=== PATIENT | female | born 1990 | race African-American/Black ===

== ENCOUNTER 2018-06-19 21:51 | Emergency (ER) | payer OTHER ==
[~2018-06-19] VITALS: Ht 167.6 cm; Wt 77.1 kg
--- NOTE | ~2018-06-19 | EKG ---
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
[~2018-06-19 21:51] MED LIST: APAP500 PO; CIPROFLOXIN HC2.5 M1 OPHTHALMIC; COLACE100 MG PO; DOXYCYCLINE 10100 M1 PO; HYDROCORTISONE 1%; IBUPROFEN 600600 M1 PO; IRON325 PO; LANSINOH 60 GM60 GM TOP; MACROBID 100 M100 M1 PO; MICROGESTIN1 EAC1 PO; NAPROSYN500 MG PO; NOHOMEMEDICATIONS; NORCO 5-325 TA1 EACH PO; PRENATAL COMPL1 EACH PO; PRENATAL OR; PRENATAL PO; PRENATAL TABLE1 EAC3 PO; PROGESTERONE100 MG PO; TRAMADOL 50 MG50 MG PO; TUCKS MEDICATE1 EAC1 TOP; TYLENOL325 MG PO; VISTARIL 25 MG25 M1 PO; XANAX 0.25 MG0.25 MG PO; ZOFRAN ODT4 MG PO; ZOFRAN4 MG PO; ZPAK PO; [UNRECOGNIZED DRUG - OTHER]
[2018-06-19 22:29] LABS: ABSOLUTE NEUTROPHILS 5.3 thou/uL (1.4-8.2); BASOPHILS 0.8 % (0.0-2.0); EOSINOPHILS 2.3 % (0.0-3.0); HEMATOCRIT 37.1 % (37.0-47.0); HEMOGLOBIN 12.4 gm/dL (12.0-15.0); LYMPHOCYTES 33.2 % (24.0-44.0); MCH 29.6 pg (26.0-34.0); MCHC 33.5 g/dL (28.0-37.0); MCV 88.2 fL (80.0-100.0); MONOCYTES 8.3 % (1.0-8.0); PLATELET COUNT 280 thou/uL (150-400); POLYS 55.4 % (36.0-66.0); WBC 9.5 thou/uL (4.0-11.0)
[2018-06-19 22:41] LABS: ANION GAP 9 mmol/L (7-16); BUN 17 mg/dL (7-18); CALCIUM 9.1 mg/dL (8.5-10.1); CHLORIDE 104 mmol/L (98-107); CO2 25 mmol/L (21-32); CREATININE 0.8 mg/dL (0.6-1.0); GLUCOSE 109 mg/dL (74-106); POTASSIUM 3.8 mmol/L (3.5-5.1); SODIUM 138 mmol/L (136-145)
[2018-06-19 22:50] LABS: TROPONIN-I <0.06 ng/mL (<0.06)
[2018-06-19] MEDS ORDERED: NAPROSYN500 MG PO (23:58)
== END 2018-06-20 01:00 | disposition home or self-care (01) ==
LOC: ER 21:51
PROVIDERS: Emergency Medicine
DX: M94.0 Chondrocostal junction syndrome [Tietze] (principal); R11.0 Nausea; Z86.14 Personal history of Methicillin resistant Staphylococcus aureus infection; Z86.711 Personal history of pulmonary embolism; Z88.0 Allergy status to penicillin; Z88.2 Allergy status to sulfonamides